=== PATIENT | male | born 1970 | race Caucasian/White ===

== ENCOUNTER 2023-11-21 14:27 | Emergency (ER) | payer SELFPAY ==
[~2023-11-21] VITALS: Ht 175.3 cm; Wt 68.2 kg
[2023-11-21] MEDS ORDERED: diazePAM 5 MG TAB PO ONE (15:45)
[2023-11-21] MEDS ORDERED: fentaNYL 50 MCG/ML 2 ML VIAL IV ONE (15:45)
[2023-11-21 17:50] VITALS: BP 117/77; PULSE 57; TEMP 97.8
== END 2023-11-21 17:50 | disposition home or self-care (01) ==
LOC: COL.ER 14:27
DX: S20.219A Contusion of unspecified front wall of thorax, initial encounter (principal); V89.2XXA Person injured in unspecified motor-vehicle accident, traffic, initial encounter; Y92.410 Unspecified street and highway as the place of occurrence of the external cause
CPT/HCPCS: J3010